=== PATIENT | female | born 1995 | race Hispanic/Latino ===

== ENCOUNTER 2018-06-03 12:53 | Emergency (ER) | payer OTHER ==
[2018-06-03] MEDS ORDERED: NA CHLORIDE 0.9% 1,000 ML ONE (14:00)
[2018-06-03 14:22] LABS: Absolute Monocytes 1.3 K/uL (0.1-1.3); Absolute Neutrophil 5.7 K/uL (1.8-8.0); Basophils % 0.5 % (0-1.3); Eosinophils % 1.1 % (0-4.4); Hematocrit 38.1 % (36.0-45.0); MPV 8.9 fL (7.6-11.3); Monocytes % 11.5 % (3.3-12.3); RBC Red Blood Cell Count 4.41 M/uL (3.86-4.86)
[2018-06-03 14:28] LABS: Urine Amorphous Sediment 2+ /HPF (NONE SEEN); Urine Bacteria <20 /HPF (<20); Urine Culture Reflex Order NOT NEEDED; Urine RBC <5 /HPF (NONE SEEN)
[2018-06-03 14:34] LABS: BUN Blood Urea Nitrogen 13 mg/dL (7-18); Bicarbonate 25 mmol/L (21-32); Glucose Level 81 mg/dL (74-106); Potassium 4.1 mmol/L (3.5-5.1); Sodium Level 140 mmol/L (136-145)
--- NOTE | 2018-06-03 15:03 | RAD REPORT ---
EXAM DESCRIPTION: CT - Abdomen Pelvis W Contrast - 06/03/2018 2:46 pm CLINICAL HISTORY: Flank pain, history of pyelonephritis diagnosis not improving on medication COMPARISON: None. TECHNIQUE: Biphasic, helical CT imaging of the abdomen and pelvis was performed following 100 ml non -ionic IV contrast. Oral contrast was given. All CT scans are performed using dose optimization technique as appropriate and may include automated exposure control or mA/KV adjustment according to patient size. FINDINGS: No suspicious findings in the lung bases. The liver, spleen, and pancreas show no suspicious findings. Cholecystectomy clips are present with n o biliary tree dilatation. Liver attenuation is borderline fatty infiltrated. Renal function is symmetric. Enhancement pattern is within normal limits. No CT findings of pyeloneph ritis. No perinephric stranding or edema. No solid mass of the parenchyma appear no bladder wall thic kening or edema. Uterus and ovaries within normal limits for age. No adrenal abnormalities. No dilated bowel loops or bowel wall thickening. A few small mesenteric lymph nodes are present. No f ree air, free fluid or inflammatory stranding. No hernia, mass or bulky lymphadenopathy. No suspicious bony findings. IMPRESSION: No CT findings of pyelonephritis. No acute finding identifiable. 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
--- NOTE | 2018-06-03 15:11 | EDPHYS ---
Physician Documentation [facility] Name: Anuja Ortiz Age: 22 yrs Sex: Female : 1995 Arrival Date: 06/03/2018 Time: 12:58 Bed 20 Private MD: Rubens Munson B ED Physician Gabino Hall HPI: 06/03 14:08 This 22 yrs old Female presents to ER via Ambulatory with complaints of Low kb Back Pain. 14:08 The patient complains of pain in the left flank and right flank. The pain does not kb radiate. Onset: The symptoms/episode began/occurred 1.5 week(s) ago. Modifying factors: The symptoms are alleviated by nothing. the symptoms are aggravated by nothing. Associated signs and symptoms: Pertinent positives: dysuria, Pertinent negatives: diarrhea, dizziness, fever, urinary frequency, headache, hematuria, nausea, pain radiating to the lower extremities, vomiting. Severity of pain: At its worst the pain was moderate in the emergency department the pain is unchanged. The patient has not experienced similar symptoms in the past. The patient has not recently seen a physician. Pt states she started having malodorous and cloudy urine 2 weeks ago, but was taking augmentin for a sinus infection so thought it would work for it. States she finished the augmentin 12 days ago and the symptoms were better, but returned. Went to Dr Munson 5 days ago and was prescribed suprax for a kidney infection, but the pain has gotten worse. . 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 - Social history:: Smoking status: Patient/guardian denies using tobacco. - Ebola Screening: : Patient negative for fever greater than or equal to 101.5 degrees Fahrenheit, and additional compatible Ebola Virus Disease symptoms Patient denies exposure to infectious person Patient denies travel to an Ebola-affected area in the 21 days before illness onset No symptoms or risks identified at this time. ROS: 14:06 Constitutional: Negative for fever, chills, and weight loss, Neck: Negative for injury, kb pain, and swelling, Cardiovascular: Negative for chest pain, palpitations, and edema, Respiratory: Negative for shortness of breath, cough, wheezing, and pleuritic chest pain, Abdomen/GI: Negative for abdominal pain, nausea, vomiting, diarrhea, and constipation, MS/Extremity: Negative for injury and deformity, Skin: Negative for injury, rash, and discoloration, Neuro: Negative for headache, weakness, numbness, tingling, and seizure. 14:06 : Positive for urinary symptoms, flank pain, burning with urination, foul smelling urine. Exam: 14:06 Constitutional: This is a well developed, well nourished patient who is awake, alert, kb and in no acute distress. Head/Face: Normocephalic, atraumatic. Chest/axilla: Normal chest wall appearance and motion. Nontender with no deformity. No lesions are appreciated. Cardiovascular: Regular rate and rhythm with a normal S1 and S2. No gallops, murmurs, or rubs. Normal PMI, no JVD. No pulse deficits. Respiratory: Lungs have equal breath sounds bilaterally, clear to auscultation and percussion. No rales, rhonchi or wheezes noted. No increased work of breathing, no retractions or nasal flaring. Skin: Warm, dry with normal turgor. Normal color with no rashes, no lesions, and no evidence of cellulitis. MS/ Extremity: Pulses equal, no cyanosis. Neurovascular intact. Full, normal range of motion. Neuro: Awake and alert, GCS 15, oriented to person, place, time, and situation. Cranial nerves II-XII grossly intact. Motor strength 5/5 in all extremities. Sensory grossly intact. Cerebellar exam normal. Normal gait. 14:06 Abdomen/GI: Inspection: abdomen appears normal, Bowel sounds: normal, in all quadrants, Palpation: soft, in all quadrants, mild abdominal tenderness, in all quadrants. 14:06 Back: CVA tenderness, that is mild, is noted bilaterally. Vital Signs: 13:12 Pulse 108; Resp 19; Temp 98.3; Pulse Ox 98% ; Weight 69.85 kg; Height 5 ft. 1 in. sg (154.94 cm); Pain 8/10; 14:16 BP 118 / 72; Pulse 66; Resp 18; Pulse Ox 99% on R/A; em 15:28 BP 111 / 65; Pulse 77; Resp 16; Pulse Ox 99% on R/A; em 13:12 Body Mass Index 29.10 (69.85 kg, 154.94 cm) sg MDM: 13:05 Patient medically screened. kb 14:06 Data reviewed: vital signs, nurses notes. Data interpreted: Pulse oximetry: on room air kb is 98 %. Interpretation: normal. 15:10 Counseling: I had a detailed discussion with the patient and/or guardian regarding: the kb historical points, exam findings, and any diagnostic results supporting the discharge/admit diagnosis, lab results, radiology results, the need for outpatient follow up, a family practitioner, to return to the emergency department if symptoms worsen or persist or if there are any questions or concerns that arise at home. 06/03 13:41 Order name: Basic Metabolic Panel; Complete Time: 14:36 kb 06/03 13:41 Order name: CBC with Diff; Complete Time: 14:33 kb 06/03 13:41 Order name: Urine Culture kb 06/03 13:41 Order name: Urine Microscopic Only; Complete Time: 14:33 kb 06/03 14:18 Order name: Urine Dipstick--Ancillary (enter results); Complete Time: 15:30 eb 06/03 14:18 Order name: Urine --Ancillary (enter results); Complete Time: 15:30 eb 06/03 13:41 Order name: IV Saline Lock; Complete Time: 14:14 kb 06/03 13:41 Order name: Labs collected and sent; Complete Time: 14:14 kb 06/03 13:41 Order name: Urine Test (obtain specimen); Complete Time: 14:14 kb 06/03 13:41 Order name: Urine Dipstick-Ancillary (obtain specimen); Complete Time: 14:14 kb 06/03 13:41 Order name: CT Abd/Pelvis - W/Contrast; Complete Time: 15:04 kb Administered Medications: 14:05 Drug: NS 0.9% 1000 ml Route: IV; Rate: 1000 ml; Site: left antecubital; em 15:29 Follow up: IV Status: Completed infusion; IV Intake: 1000ml em Disposition: 06/04 07:01 Co-signature as Attending Physician, Gabino Hall MD. rn Disposition: 06/03/18 15:10 Discharged to Home. Impression: Generalized abdominal pain. - Condition is Stable. - Discharge Instructions: Abdominal Pain, Adult, [id number]. - Prescriptions for Zofran 4 mg Oral Tablet - take 1 tablet by ORAL route every 6 hours As needed; 20 tablet. Diclofenac Sodium 75 mg Oral Tablet Sustained Release - take 1 tablet by ORAL route 2 times per day; 30 tablet. - Medication Reconciliation Form, Thank You Letter, Antibiotic Education, Prescription Opioid Use form. - Follow up: Emergency Department; When: As needed; Reason: Worsening of condition. Follow up: Private Physician; When: 2 - 3 days; Reason: Recheck today's complaints, Continuance of care, Re-evaluation by your physician. Signatures: Dispatcher [employer] EDLiss Hi, DARREL-C TICKET WORKER-Raghavendra Meyers, RN RN sg Murphy Galicia, STONE OPERATOR STONE OPERATOR em Gabino Hall MD MD learning coach: (The following items were deleted from the chart) 06/03 15:30 15:10 06/03/2018 15:10 Discharged to Home. Impression: Generalized abdominal pain. em Condition is Stable. Forms are Medication Reconciliation Form, Thank You Letter, Antibiotic Education, Prescription Opioid Use. Follow up: Emergency Department; When: As needed; Reason: Worsening of condition. Follow up: Private Physician; When: 2 - 3 days; Reason: Recheck today's complaints, Continuance of care, Re-evaluation by your physician. kb
--- NOTE | 2018-06-03 15:11 | ER ---
Nurse's Notes [facility] Name: Anuja Ortiz Age: 22 yrs Sex: Female : 1995 Arrival Date: 06/03/2018 Time: 12:58 Bed 20 Private MD: Rubens Munson B Diagnosis: Generalized abdominal pain Presentation: 06/03 13:10 Presenting complaint: Patient states: Treated for Pyeloneph, completed Suprax PO, no sg improvement, reports N/V, denies fever. symptoms not improving. Transition of care: patient was not received from another setting of care. Onset of symptoms was June 03, 2018. Risk Assessment: Do you want to hurt yourself or someone else? Patient reports no desire to harm self or others. Initial Sepsis Screen: Does the patient meet any 2 criteria? No. Patient's initial sepsis screen is negative. Does the patient have a suspected source of infection? No. Patient's initial sepsis screen is negative. Care prior to arrival: None. 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 - Social history:: Smoking status: Patient/guardian denies using tobacco. - Ebola Screening: : Patient negative for fever greater than or equal to 101.5 degrees Fahrenheit, and additional compatible Ebola Virus Disease symptoms Patient denies exposure to infectious person Patient denies travel to an Ebola-affected area in the 21 days before illness onset No symptoms or risks identified at this time. Screenin:00 Abuse screen: Denies threats or abuse. Nutritional screening: No deficits noted. em Tuberculosis screening: No symptoms or risk factors identified. Fall Risk None identified. Assessment: 14:00 General: Appears in no apparent distress. comfortable, Behavior is calm, cooperative, em Reports fever for. Pain: Complains of pain in left low back, right low back, right iliac crest and left iliac crest Pain currently is 7 out of 10 on a pain scale. Quality of pain is described as burning. Neuro: Level of Consciousness is awake, alert, obeys commands, Oriented to person, place, time, situation. Cardiovascular: Patient's skin is warm and dry. Respiratory: Airway is patent Respiratory effort is even, unlabored, Respiratory pattern is regular, symmetrical. GI: Abdomen is flat, Reports nausea, vomiting. : Urine is cloudy, Reports burning with urination, pain in lower back with urination, urinary frequency. Derm: Skin is intact, is healthy with good turgor, Skin is pink, warm \T\ dry. Musculoskeletal: Range of motion: intact in all extremities. 14:15 Reassessment: I agree with previous assessment. hb 15:28 Reassessment: Patient appears in no apparent distress at this time. Patient and/or em family updated on plan of care and expected duration. Pain level reassessed. Patient is alert, oriented x 3, equal unlabored respirations, skin warm/dry/pink. Vital Signs: 13:12 Pulse 108; Resp 19; Temp 98.3; Pulse Ox 98% ; Weight 69.85 kg; Height 5 ft. 1 in. sg (154.94 cm); Pain 8/10; 14:16 BP 118 / 72; Pulse 66; Resp 18; Pulse Ox 99% on R/A; em 15:28 BP 111 / 65; Pulse 77; Resp 16; Pulse Ox 99% on R/A; em 13:12 Body Mass Index 29.10 (69.85 kg, 154.94 cm) ED Course: 12:58 Patient arrived in ED. rg4 12:58 Rubens Munson MD is Private Physician. rg4 13:05 Liss Gallagher FNP-C is [facility]. kb 13:05 Gabino Hall MD is Attending Physician. kb 13:11 Triage completed. sg 13:12 Arm band placed on. sg 13:13 Murphy Galicia LVN is Primary Nurse. em 14:00 Patient has correct armband on for positive identification. Placed in gown. Bed in low em position. Call light in reach. Adult w/ patient. Pulse ox on. NIBP on. 14:05 Radiology exam delayed due to lab results not completed at this time. test kw1 not completed at this time. 14:10 Inserted saline lock: 22 gauge in left antecubital area, using aseptic technique. Blood em collected. 14:10 Initial lab(s) drawn, by me, sent to lab. Urine collected: clean catch specimen, em cloudy, Amount Voided: 120mL. 14:44 CT completed. Patient moved to CT via wheelchair. Patient moved back from CT. bq 14:46 CT Abd/Pelvis - W/Contrast In Process Unspecified. EDMS 15:27 No provider procedures requiring assistance completed. IV discontinued, intact, em bleeding controlled, No redness/swelling at site. Pressure dressing applied. Administered Medications: 14:05 Drug: NS 0.9% 1000 ml Route: IV; Rate: 1000 ml; Site: left antecubital; em 15:29 Follow up: IV Status: Completed infusion; IV Intake: 1000ml em Intake: 15:29 IV: 1000ml; Total: 1000ml. em Outcome: 15:10 Discharge ordered by MD. kb 15:27 Discharged to home ambulatory, with family. em 15:27 Condition: good 15:27 Discharge instructions given to patient, family, Instructed on discharge instructions, follow up and referral plans. medication usage, Demonstrated understanding of instructions, follow-up care, medications, Prescriptions given X 2. 15:30 Patient left the ED. em Signatures: Dispatcher [employer] EDMS Liss Gallagher, HOT STICK MAN-C HOT STICK MAN-Ckb Raghavendra Hitchcock, RN RN Cele Muro Edgar, DETECTIVE [employer]TH [employer]AU DETECTIVE YOUTH BUREAU em Stephanie Beckett, RN Delores Killian rg4 Fallon Figueroa kw1
[2018-06-03 15:23] LABS: Urine Blood NEGATIVE (NEG); Urine Glucose NEGATIVE (NEG); Urine Protein NEGATIVE (NEG)
== END 2018-06-03 15:30 | disposition home or self-care (01) ==
LOC: ER 12:53
DX: R10.84 Generalized abdominal pain (principal)
CPT/HCPCS: 36415; 74177; 80048; 81003; 81015; 81025; 85025; 87086; 87088; 96360; 99284; J7030; Q9967